=== PATIENT | female | born 1940 | race Caucasian/White ===

== ENCOUNTER 2016-09-03 19:29 | Emergency (ER) | payer MEDICARE, OTHER ==
--- NOTE | 2016-09-14 19:38 | ER ---
ADMIT: 09/03/2016 RM/LOC: ER [facility] MR#: [id number] [id number] [id number] HILARY BARRAZA [address] [place] [address] Emergency Room Report SEX: F AGE: 76 : 1940 DATE: 09/03/2016 CHIEF COMPLAINT: Burn to left foot. HISTORY OF PRESENT ILLNESS: The patient is a 76-year-old female, comes in for evaluation of a blister to the top of her left foot after she spilled some hot liquid when she was cooking earlier today. It has been several hours ago and she is here mainly at prompting of friends and family and wanted to get it checked out. She states she does not have any pain at this time, has no other injuries. She has been able to walk on it without difficulty. PAST MEDICAL HISTORY: Significant for hypertension and hypothyroidism. MEDICATIONS: See nurse's note. PAST SURGICAL HISTORY: Hip replacement x2. ALLERGIES: NONE. PHYSICAL EXAMINATION: VITAL SIGNS: See nursing sheet for vital signs. HEENT: Head is atraumatic. LUNGS: The patient has no respiratory distress. EXTREMITIES: Examination of her extremities revealed no trauma or injuries other than she does have a blister which is diagrammed on her T-sheet measuring approximately 7 cm x 4 cm on the dorsum medial aspect of her left foot. It is fluid-filled with clear-appearing fluid with no surrounding erythema. She has sensation distal to this area and no signs of infection. MEDICAL DECISION MAKING: Based on my examination, the patient has sustained a second-degree thermal burn to the dorsum of her left foot. She is not diabetic, and at this point, there are no signs of infection. We will be discharging the patient to home with instructions to try to keep the blister in place as long as possible, and when that ruptures, if she develops any signs of infection, which were discussed with the patient. She needs to follow up with her regular physician or get re-evaluated in the ER. She was given a prescription to get Silvadene cream filled and she can start using it once the blister ruptures to the affected area. The patient is discharged home in stable condition. DIAGNOSIS: Thermal burn, second-degree, to the left foot. Carlos Goldman MD/ chloe JOB #: [id number] CC: Sinan Hopper MD, Attending Physician Tyler Wall MD, Family Physician
== END 2016-09-03 20:25 | disposition home or self-care (01) ==
LOC: ER 19:29
DX: T25.222A Burn of second degree of left foot, initial encounter (principal); X12.XXXA Contact with other hot fluids, initial encounter; Y93.G3 Activity, cooking and baking; Y92.000 Kitchen of unspecified non-institutional (private) residence as the place of occurrence of the external cause; I10 Essential (primary) hypertension; E03.9 Hypothyroidism, unspecified; Z79.899 Other long term (current) drug therapy